=== PATIENT | female | born 1990 | race Caucasian/White ===

== ENCOUNTER 2020-05-06 19:00 | Inpatient (IN) | payer MEDICAID ==
[2020-05-06] MEDS ORDERED: Misoprostol 200 MCG Tab PO PRN (20:52)
[2020-05-06] MEDS ORDERED: Water For Irrigation,Sterile 1,000 ML Container IRR PRN (20:52)
[2020-05-06] MEDS ORDERED: Carboprost Tromethamine 250 MCG/1 ML Amp IM PRN (20:52)
[2020-05-06] MEDS ORDERED: Nalbuphine 10 MG/1 ML Vial IVPUSH PRN (20:52)
[2020-05-06] MEDS ORDERED: Sodium Chloride 0.9% 2.5 ML Syringe FLUSH PRN (20:52)
[2020-05-06] MEDS ORDERED: Methylergonovine 0.2 MG/1 ML Amp IM PRN (20:52)
[2020-05-06] MEDS ORDERED: Sodium Chloride 0.9% 10 ML Syringe FLUSH PRN (20:52)
[2020-05-06] MEDS ORDERED: Lidocaine 1% 50 ML MDV INJECT PRN (20:52)
[2020-05-06] MEDS ORDERED: Tranexamic Acid 1,000 MG in Sodium Chloride 0.9% 100 ML IV PRN (20:52)
[2020-05-06] MEDS ORDERED: Sodium Chloride 0.9% 10 ML SDV IV PRN (20:52)
[2020-05-06] MEDS ORDERED: Butorphanol 1 MG/ML SDV IVPUSH PRN (20:52)
[2020-05-06] MEDS ORDERED: Oxytocin/0.9 % Sodium Chloride 30 UNIT/500 ML BAG IV SCH (21:00)
[2020-05-06] MEDS: Lactated Ringers 1,000 ML IV SCH ×2 (21:26→22:27)
[2020-05-06] MEDS ORDERED: Ropivacaine HCl/PF 100 ML ONE (21:39)
[2020-05-06] MEDS ORDERED: fentaNYL 100 MCG/2 ML SDV ONE (21:39)
--- NOTE | 2020-05-06 22:07 | PCM.PREANE ---
Preanesthetic Assessment - Anesthesia/Transfusion/Family Hx Anesthesia History: Prior Anesthesia Without Reaction Family History of Anesthesia Reaction: No Transfusion History: No Prior Transfusion(s) - Physical Assessment NPO Status Date: 05/06/20 NPO Status Time: 19:30 Height: 1.68 m Weight: 92.986 kg ASA Class: 2 - Lab Values: Laboratory Last Values WBC 9.05 K/uL (4.0-11.0) 05/06/20 20:40 RBC 3.84 M/uL (4.30-5.90) L 05/06/20 20:40 Hgb 12.0 g/dL (12.0-16.0) 05/06/20 20:40 Hct 34.3 % (36.0-46.0) L 05/06/20 20:40 MCV 89.3 fL (80.0-98.0) 05/06/20 20:40 MCH 31.3 pg (27.0-32.0) 05/06/20 20:40 MCHC 35.0 g/dL (31.0-37.0) 05/06/20 20:40 RDW Std Deviation 40.6 fl (28.0-62.0) 05/06/20 20:40 RDW Coeff of Shen 13 % (11.0-15.0) 05/06/20 20:40 Plt Count 139 K/uL (150-400) L 05/06/20 20:40 MPV 10.40 fL (7.40-12.00) 05/06/20 20:40 COVID-19 (REJI) NEGATIVE (NEGATIVE) 05/06/20 20:55 Blood Type O POSITIVE 05/06/20 20:40 Antibody Screen NEGATIVE 05/06/20 20:40 - Allergies Allergies/Adverse Reactions: Allergies Allergy/AdvReac Type Severity Reaction Status Date / Time No Known Allergies Allergy Verified 02/16/18 06:47 MDT - Acknowledgements Anesthesia Type Planned: Epidural Pt an Appropriate Candidate for the Planned Anesthesia: Yes Alternatives and Risks of Anesthesia Discussed w Pt/Guardian: Yes Pt/Guardian Understands and Agrees with Anesthesia Plan: Yes PreAnesthesia Questionnaire - Past Health History Medical/Surgical History: Denies Medical/Surgical History HEENT History: Reports: Hard of Hearing Other HEENT History: Hearing aids 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 History: Reports: Psychiatric History: Reports: Anxiety, Depression - Past Surgical History HEENT Surgical History: Reports: Oral Surgery Other HEENT Surgeries/Procedures: Carmel teeth - HOME MEDS Home Medications: Home Meds Acetaminophen [Tylenol] 650 mg PO Q4H PRN tablet 02/18/18 [Rx] Benzocaine/Menthol [Dermoplast Pain Relief [place]] 1 spray TOP ASDIRECTED PRN canister 02/18/18 [Rx] Docusate Sodium [Colace] 100 mg PO BID PRN cap 02/18/18 [Rx] Ibuprofen [Motrin] 600 mg PO Q4H PRN tablet 02/18/18 [Rx] Lanolin [Lansinoh HPA] 1 applic TOP ASDIRECTED PRN tube 02/18/18 [Rx] witchaim Arjun [Tucks] 1 pad TOP ASDIRECTED PRN pad 02/18/18 [Rx] - CURRENT (IN HOUSE) MEDS Current Meds: Current Medications Butorphanol Tartrate (Stadol) 1 mg IVPUSH Q1H PRN PRN Reason: Pain Carboprost Tromethamine (Hemabate Ds) 250 mcg IM ASDIRECTED PRN PRN Reason: Post Hemorrhage Oxytocin/Sodium Chloride (Oxytocin 30 Unit/500 Ml-Ns) 30 unit in 500 mls @ 500 mls/hr IV TITRATE SHALONDA Tranexamic Acid 1,000 mg/ (Sodium Chloride) 110 mls @ 660 mls/hr IV ONETIME PRN PRN Reason: Bleeding Lactated Ringer's (Ringers, Lactated) 1,000 mls @ 150 mls/hr IV ASDIRECTED SHALONDA Lidocaine HCl (Xylocaine 1%) 50 ml INJECT ONETIME PRN PRN Reason: Laceration repair Methylergonovine Maleate (Methergine) 0.2 mg IM ASDIRECTED PRN PRN Reason: Post Hemorrhage Misoprostol (Cytotec) 200 mcg PO ONETIME PRN PRN Reason: Post Hemorrhage Nalbuphine HCl (Nubain) 10 mg IVPUSH Q1H PRN PRN Reason: Pain (severe 7-10) Sodium Chloride (Saline Flush) 10 ml FLUSH ASDIRECTED PRN PRN Reason: Keep Vein Open Sodium Chloride (Saline Flush) 2.5 ml FLUSH ASDIRECTED PRN PRN Reason: Keep Vein Open Sodium Chloride (Normal Saline) 10 ml IV ASDIRECTED PRN PRN Reason: IV Use Sterile Water (Sterile Water For Irrigation) 1,000 ml IRR ASDIRECTED PRN PRN Reason: delivery Discontinued Medications Fentanyl (Sublimaze) Confirm Administered Dose 100 mcg .ROUTE .STK-MED ONE Stop: 05/06/20 21:40 Ropivacaine (Naropin 0.2%) Confirm Administered Dose 100 mls @ as directed . ROUTE .AppThwack-MED ONE Stop: 05/06/20 21:40
--- NOTE | 2020-05-06 22:10 | PCM.PRNOTE ---
- Free Text/Narrative Note: Anes NOte Patient requests epidural for L&D. Sitting position, level L3-L4 midline approach. Sterile technique, chloraprep scrub to lumbar area. Sterile fenestrated drape applied. Epidural space easily achieved using YASMIN technique. YASMIN at 4 cm. Cath threaded 5 cm with ease. Cath secured a tskin at 10 cm using s terile clear adhesive dressing. Test 2154 3 cc 1.5% lido with epi negative. 2199 Load 10 cc 0.2% ropiv with 1 mcg cc fentanyl in slow divided doses. 2204 Pump started wtih 90 cc same solution. Rate is 8 cc hr with 6 cc q 20 min prn bolus. Eric well. Time with patient [id number]. Alfred Le ENLISTED AIRCREW/AERIAL OBSERVER/GUNNER
[2020-05-07] MEDS ORDERED: Acetaminophen 500 MG Tab PO PRN (01:29)
[2020-05-07] MEDS ORDERED: Bisacodyl 10 MG Supp RECTAL PRN (01:29)
[2020-05-07] MEDS ORDERED: Witch Hazel Medicated Pads 40/Jar TOP PRN (01:29)
[2020-05-07] MEDS ORDERED: oxyCODONE 5 MG Tab PO PRN (01:29)
[2020-05-07] MEDS ORDERED: Benzocaine/Menthol 20%-0.5% Spray 78 GM Cannister TOP PRN (01:29)
[2020-05-07] MEDS ORDERED: Docusate Sodium 100 MG Cap PO PRN (01:29)
[2020-05-07] MEDS ORDERED: Lanolin 100% Cream 7 GM Tube TOP PRN (01:29)
--- NOTE | 2020-05-07 01:33 | PCM.DEL ---
<Mauri Vasquez A - Last Filed: 05/07/20 01:29> L & D Note - General Info Date of Service: 05/07/20 - Delivery Note Labor: Spontaneous Delivery Outcome: Livebirth Infant Delivery Method: Spontaneous Vaginal Delivery-Single Presentation: Left Occiput Anterior (ALFREDO) Nuchal Cord: None Anesthesia Type: Epidural Amniotic Fluid Description: Clear Episiotomy Type: None Laceration: 1st Degree Suture type: Vicryl Suture size: 3-0 Placenta: Intact, Spontaneous Cord: 3 Vessels Estimated Blood Loss: 300 Resuscitation Needed: No : Bulb Syringe Provider: Ry Evans Score 1 min: 8 Score 5 min: 8 Second Stage Interventions: Reports: Pushing Effectively Delivery Comments (Free Text/Narrative):: Liveborn male infant born via at 0051, APGARs 8 and 8 weighing 3390g over a 1st degree perineal laceration repaired, no complications, and mom progressing well - Patient Data Weight - Most Recent: 93.44 kg Lab Results Last 24 Hours: Laboratory Results - last 24 hr 05/06/20 05/06/20 05/06/20 Range/Units 20:40 20:40 20:55 WBC 9.05 (4.0-11.0) K/uL RBC 3.84 L (4.30-5.90) M/uL Hgb 12.0 (12.0-16.0) g/dL Hct 34.3 L (36.0-46.0) % MCV 89.3 (80.0-98.0) fL MCH 31.3 (27.0-32.0) pg MCHC 35.0 (31.0-37.0) g/dL RDW Std Deviation 40.6 (28.0-62.0) fl RDW Coeff of Shen 13 (11.0-15.0) % Plt Count 139 L (150-400) K/uL MPV 10.40 (7.40-12.00) fL COVID-19 (REJI) NEGATIVE (NEGATIVE) Blood Type O POSITIVE Antibody Screen NEGATIVE Med Orders - Current: Current Medications Butorphanol Tartrate (Stadol) 1 mg IVPUSH Q1H PRN PRN Reason: Pain Carboprost Tromethamine (Hemabate Ds) 250 mcg IM ASDIRECTED PRN PRN Reason: Post Hemorrhage Oxytocin/Sodium Chloride (Oxytocin 30 Unit/500 Ml-Ns) 30 unit in 500 mls @ 500 mls/hr IV TITRATE [facility] Last Admin: 05/07/20 00:51 Dose: 500 mls/hr Documented by: Tranexamic Acid 1,000 mg/ (Sodium Chloride) 110 mls @ 660 mls/hr IV ONETIME PRN PRN Reason: Bleeding Lactated Ringer's (Ringers, Lactated) 1,000 mls @ 150 mls/hr IV ASDIRECTED [facility] Last Infusion: 05/06/20 23:30 Dose: Infused Documented by: Lidocaine HCl (Xylocaine 1%) 50 ml INJECT ONETIME PRN PRN Reason: Laceration repair Methylergonovine Maleate (Methergine) 0.2 mg IM ASDIRECTED PRN PRN Reason: Post Hemorrhage Misoprostol (Cytotec) 200 mcg PO ONETIME PRN PRN Reason: Post Hemorrhage Nalbuphine HCl (Nubain) 10 mg IVPUSH Q1H PRN PRN Reason: Pain (severe 7-10) Sodium Chloride (Saline Flush) 10 ml FLUSH ASDIRECTED PRN PRN Reason: Keep Vein Open Sodium Chloride (Saline Flush) 2.5 ml FLUSH ASDIRECTED PRN PRN Reason: Keep Vein Open Sodium Chloride (Normal Saline) 10 ml IV ASDIRECTED PRN PRN Reason: IV Use Sterile Water (Sterile Water For Irrigation) 1,000 ml IRR ASDIRECTED PRN PRN Reason: delivery Discontinued Medications Fentanyl (Sublimaze) Confirm Administered Dose 100 mcg .ROUTE .STK-MED ONE Stop: 05/06/20 21:40 Ropivacaine (Naropin 0.2%) Confirm Administered Dose 100 mls @ as directed .ROUTE .STK-MED ONE Stop: 05/06/20 21:40 <Kristina Pennington - Last Filed: 05/07/20 01:37> - General Info Date of Service: 05/07/20 - Patient Data Lab Results Last 24 Hours: Laboratory Results - last 24 hr 05/06/20 05/06/20 05/06/20 Range/Units 20:40 20:40 20:55 WBC 9.05 (4.0-11.0) K/uL RBC 3.84 L (4.30-5.90) M/uL Hgb 12.0 (12.0-16.0) g/dL Hct 34.3 L (36.0-46.0) % MCV 89.3 (80.0-98.0) fL MCH 31.3 (27.0-32.0) pg MCHC 35.0 (31.0-37.0) g/dL RDW Std Deviation 40.6 (28.0-62.0) fl RDW Coeff of Shen 13 (11.0-15.0) % Plt Count 139 L (150-400) K/uL MPV 10.40 (7.40-12.00) fL COVID-19 (REJI) NEGATIVE (NEGATIVE) Blood Type O POSITIVE Antibody Screen NEGATIVE Med Orders - Current: Current Medications Acetaminophen (Tylenol Extra Strength) 1,000 mg PO Q6H PRN PRN Reason: Pain Benzocaine/Menthol (Dermoplast Pain Relief 20%-0.5% [place]) 78 gm TOP ASDIRECTED PRN PRN Reason: Perineal Comfort Measure Bisacodyl (Dulcolax) 10 mg RECTAL ONETIME PRN PRN Reason: Constipation Butorphanol Tartrate (Stadol) 1 mg IVPUSH Q1H PRN PRN Reason: Pain Carboprost Tromethamine (Hemabate Ds) 250 mcg IM ASDIRECTED PRN PRN Reason: Post Hemorrhage Docusate Sodium (Colace) 100 mg PO BID PRN PRN Reason: Constipation Emollient Ointment (Lansinoh Hpa) 0 gm TOP ASDIRECTED PRN PRN Reason: Sore Nipples Oxytocin/Sodium Chloride (Oxytocin 30 Unit/500 Ml-Ns) 30 unit in 500 mls @ 500 mls/hr IV TITRATE [facility] Last Admin: 05/07/20 00:51 Dose: 500 mls/hr Documented by: Tranexamic Acid 1,000 mg/ (Sodium Chloride) 110 mls @ 660 mls/hr IV ONETIME PRN PRN Reason: Bleeding Lactated Ringer's (Ringers, Lactated) 1,000 mls @ 150 mls/hr IV ASDIRECTED [facility] Last Infusion: 05/06/20 23:30 Dose: Infused Documented by: Ibuprofen (Motrin) 800 mg PO Q8H PRN PRN Reason: Pain Lidocaine HCl (Xylocaine 1%) 50 ml INJECT ONETIME PRN PRN Reason: Laceration repair Methylergonovine Maleate (Methergine) 0.2 mg IM ASDIRECTED PRN PRN Reason: Post Hemorrhage Misoprostol (Cytotec) 200 mcg PO ONETIME PRN PRN Reason: Post Hemorrhage Nalbuphine HCl (Nubain) 10 mg IVPUSH Q1H PRN PRN Reason: Pain (severe 7-10) Oxycodone HCl (Oxycodone) 5 mg PO Q2H PRN PRN Reason: Pain Sodium Chloride (Saline Flush) 10 ml FLUSH ASDIRECTED PRN PRN Reason: Keep Vein Open Sodium Chloride (Saline Flush) 2.5 ml FLUSH ASDIRECTED PRN PRN Reason: Keep Vein Open Sodium Chloride (Normal Saline) 10 ml IV ASDIRECTED PRN PRN Reason: IV Use Sterile Water (Sterile Water For Irrigation) 1,000 ml IRR ASDIRECTED PRN PRN Reason: delivery Witch Carlita (Tucks) 1 pad TOP ASDIRECTED PRN PRN Reason: comfort care Discontinued Medications Fentanyl (Sublimaze) Confirm Administered Dose 100 mcg .ROUTE .STK-MED ONE Stop: 05/06/20 21:40 Ropivacaine (Naropin 0.2%) Confirm Administered Dose 100 mls @ as directed .ROUTE .3D Forms-MED ONE Stop: 05/06/20 21:40 - Problem List & Annotations (1) Vaginal delivery SNOMED Code(s): 985750931 Code(s): O80 - ENCOUNTER FOR FULL-TERM UNCOMPLICATED DELIVERY Status: Acute Current Visit: Yes - Problem List Review Problem List Initiated/Reviewed/Updated: Yes - My Orders Last 24 Hours: My Active Orders 05/06/20 20:40 RPR (SYPHILIS SERO) W/ RFLX [REF] Routine 05/06/20 20:52 Patient Status [ADT] Routine Heart Tones [RC] CONTINUOUS Non Stress Test [RC] PER UNIT ROUTINE May Shower [RC] ASDIRECTED Notify Provider [RC] PRN Up ad Rosita [RC] ASDIRECTED Vaginal Exam [RC] PRN Vital Signs [RC] PER UNIT ROUTINE Butorphanol [Stadol] 1 mg IVPUSH Q1H PRN Carboprost Tromethamine [Hemabate DS] 250 mcg IM ASDIRECTED PRN Lidocaine 1% [Xylocaine 1%] 50 ml INJECT ONETIME PRN Methylergonovine [Methergine] 0.2 mg IM ASDIRECTED PRN Nalbuphine [Nubain] 10 mg IVPUSH Q1H PRN Sodium Chloride 0.9% [Normal Saline] 10 ml IV ASDIRECTED PRN Sodium Chloride 0.9% [Saline Flush] 10 ml FLUSH ASDIRECTED PRN Sodium Chloride 0.9% [Saline Flush] 2.5 ml FLUSH ASDIRECTED PRN Tranexamic Acid [Cyklokapron] 1,000 mg Sodium Chloride 0.9% [Normal Saline] 100 ml IV ONETIME Water For Irrigation,Sterile [Sterile Water for Irrigation] 1,000 ml IRR ASDIRECTED PRN miSOPROStoL [Cytotec] 200 mcg PO ONETIME PRN Scalp Electrode [WOMSER] Per Unit Routine Peripheral IV Insertion Adult [OM.PC] Routine Resuscitation Status Routine 05/06/20 21:00 Lactated Ringers [Ringers, Lactated] 1,000 ml IV ASDIRECTED Oxytocin/0.9 % Sodium Chloride [Oxytocin 30 Unit/500 ML-NS] 30 unit in 500 ml IV TITRATE 05/07/20 01:29 Patient Status [ADT] Routine May Shower [RC] ASDIRECTED Notify Provider Vital Signs [RC] ASDIRECTED Up ad Rosita [RC] ASDIRECTED Vital Signs [RC] PER UNIT ROUTINE Acetaminophen [Tylenol Extra Strength] 1,000 mg PO Q6H PRN Benzocaine/Menthol [Dermoplast Pain Relief 20%-0.5% [place]] 78 gm TOP ASDIRECTED PRN Docusate Sodium [Colace] 100 mg PO BID PRN Ibuprofen [Motrin] 800 mg PO Q8H PRN Lanolin [Lansinoh HPA] See Dose Instructions TOP ASDIRECTED PRN bisacodyL [Dulcolax] 10 mg RECTAL ONETIME PRN oxyCODONE 5 mg PO Q2H PRN witch Carlita [Tucks] 1 pad TOP ASDIRECTED PRN Assess Lochia [WOMSER] Per Unit Routine Assess Uterine Involution [WOMSER] Per Unit Routine Breast Pump [WOMSER] Per Unit Routine Ice Therapy [OM.PC] Per Unit Routine Perineal Care [OM.PC] Per Unit Routine Peripheral IV Discontinue [OM.PC] Routine Sitz Bath [OM.PC] Per Unit Routine 05/07/20 01:30 Cooling Warming Measures [RC] ASDIRECTED 05/07/20 Breakfast Regular Diet [DIET] 05/08/20 05:11 HEMOGLOBIN/HEMATOCRIT,HH [HEME] Timed - Assessment Assessment:: 29yo s/p at 39w6d - Plan Plan:: Admit to unit for routine care.
[2020-05-07] MEDS: Ibuprofen 800 MG Tab PO PRN ×2 (04:26→16:16)
--- NOTE | 2020-05-07 05:53 | OR ---
SURGEON: Kristina Pennington MD DATE OF PROCEDURE: 05/07/2020 PREOPERATIVE DIAGNOSES: 1. A 29-year-old, G2, P1-0-0-1 at 39 weeks and 5 days' gestation. 2. Labor. 3. Group B streptococcus negative. POSTOPERATIVE DIAGNOSES: 1. A 29-year-old, G2, P2-0-0-2 status post spontaneous vaginal delivery at 39 weeks and 6 days' gestation. 2. Labor. 3. Group B streptococcus negative. PROCEDURE: Spontaneous vaginal delivery and repair of 1st-degree perineal laceration. PRIMARY SURGEON: Kristina Pennington MD ENVIRONMENTAL STUDIES PROFESSOR: Mauri Vasquez, medical student. ANESTHESIA: Epidural. ESTIMATED BLOOD LOSS: 300 mL. FINDINGS: Live female in cephalic presentation. score of 8 and 8 at one and five minutes respectively. Weight 3390 g. Placenta intact and with 3-vessel cord. First-degree perineal laceration. INDICATIONS: This is a 29-year-old, G2, P1-0-0-1 who presented at 39 weeks and 5 days' gestation in active labor. Upon presentation, her cervix was found to be 3 cm dilated. She changed to 4 cm dilated and was admitted to Labor and Delivery. At approximately 5 cm dilated, she underwent artificial rupture of membranes with clear fluid noted. She received an epidural for pain control. She progressed to complete cervical dilation and began pushing. I was called to the room. DESCRIPTION OF PROCEDURE: I arrived to the room with station at +2 station. Over the next 2 contractions, the patient pushed and delivered a live male . The head was delivered followed by the shoulders and remainder of the body. The placed on maternal abdomen. After approximately 60 seconds, the cord was clamped and cut. The perineum was inspected and a first-degree perineal laceration was noted. This was repaired to anatomy and hemostasis with 3-0 Vicryl. The placenta then delivered intact and with 3-vessel cord via the Joseph-Steinberg maneuver. Fundus was firm below the umbilicus with minimal lochia. The patient tolerated the delivery well. [id number] / MODL /[id number]
--- NOTE | 2020-05-07 07:34 | PCM48HPAN ---
Post Anesthesia Note - EVALUATION WITHIN 48HRS OF ANESTHETIC Vital Signs in Normal Range: Yes Patient Participated in Evaluation: Yes Respiratory Function Stable: Yes Airway Patent: Yes Cardiovascular Function Stable: Yes Hydration Status Stable: Yes Pain Control Satisfactory: Yes Nausea and Vomiting Control Satisfactory: Yes Mental Status Recovered: Yes Vital Signs: Last Vital Signs Temp Pulse 84 05/07/20 04:15 Resp 16 05/07/20 04:15 BP 127/80 05/07/20 04:15 Pulse Ox
--- NOTE | 2020-05-07 12:07 | PCM.PNPP ---
- General Info Date of Service: 05/07/20 Admission Dx/Problem (Free Text): Spontaneous labor Subjective Update: Patient reports pain is minimal, just in her back from the epidural, she is ambulating, tolerating diet, urinating and showered this afternoon. Baby nursed some initially after delivery but has been sleepy since Functional Status: Reports: Pain Controlled, Tolerating Diet, Ambulating, Urinating Pain Score: 2 - Review of Systems General: Reports: No Symptoms HEENT: Reports: No Symptoms Pulmonary: Reports: No Symptoms Cardiovascular: Reports: No Symptoms Gastrointestinal: Reports: No Symptoms Genitourinary: Reports: No Symptoms Musculoskeletal: Reports: No Symptoms Skin: Reports: No Symptoms Neurological: Reports: No Symptoms Psychiatric: Reports: No Symptoms - General Info Date of Service: 05/07/20 - Patient Data Vital Signs - Most Recent: Last Vital Signs Temp 98.4 F 05/07/20 07:29 Pulse 67 05/07/20 07:29 Resp 15 05/07/20 07:29 BP 113/63 05/07/20 07:29 Pulse Ox 96 05/07/20 07:29 Weight - Most Recent: 206 lb Lab Results - Last 24 Hours: Laboratory Results - last 24 hr 05/06/20 05/06/20 05/06/20 Range/Units 20:40 20:40 20:55 WBC 9.05 (4.0-11.0) K/uL RBC 3.84 L (4.30-5.90) M/uL Hgb 12.0 (12.0-16.0) g/dL Hct 34.3 L (36.0-46.0) % MCV 89.3 (80.0-98.0) fL MCH 31.3 (27.0-32.0) pg MCHC 35.0 (31.0-37.0) g/dL RDW Std Deviation 40.6 (28.0-62.0) fl RDW Coeff of Shen 13 (11.0-15.0) % Plt Count 139 L (150-400) K/uL MPV 10.40 (7.40-12.00) fL COVID-19 (REJI) NEGATIVE (NEGATIVE) Blood Type O POSITIVE Antibody Screen NEGATIVE Med Orders - Current: Current Medications Acetaminophen (Tylenol Extra Strength) 1,000 mg PO Q6H PRN PRN Reason: Pain Last Admin: 05/07/20 04:26 Dose: 1,000 mg Documented by: Benzocaine/Menthol (Dermoplast Pain Relief 20%-0.5% [place]) 78 gm TOP ASDIRECTED PRN PRN Reason: Perineal Comfort Measure Last Admin: 05/07/20 02:43 Dose: 1 canister Documented by: Bisacodyl (Dulcolax) 10 mg RECTAL ONETIME PRN PRN Reason: Constipation Butorphanol Tartrate (Stadol) 1 mg IVPUSH Q1H PRN PRN Reason: Pain Carboprost Tromethamine (Hemabate Ds) 250 mcg IM ASDIRECTED PRN PRN Reason: Post Hemorrhage Docusate Sodium (Colace) 100 mg PO BID PRN PRN Reason: Constipation Emollient Ointment (Lansinoh Hpa) 0 gm TOP ASDIRECTED PRN PRN Reason: Sore Nipples Oxytocin/Sodium Chloride (Oxytocin 30 Unit/500 Ml-Ns) 30 unit in 500 mls @ 500 mls/hr IV TITRATE [facility] Last Admin: 05/07/20 00:51 Dose: 500 mls/hr Documented by: Tranexamic Acid 1,000 mg/ (Sodium Chloride) 110 mls @ 660 mls/hr IV ONETIME PRN PRN Reason: Bleeding Lactated Ringer's (Ringers, Lactated) 1,000 mls @ 150 mls/hr IV ASDIRECTED SHALONDA Last Infusion: 05/06/20 23:30 Dose: Infused Documented by: Ibuprofen (Motrin) 800 mg PO Q8H PRN PRN Reason: Pain Last Admin: 05/07/20 04:26 Dose: 800 mg Documented by: Lidocaine HCl (Xylocaine 1%) 50 ml INJECT ONETIME PRN PRN Reason: Laceration repair Methylergonovine Maleate (Methergine) 0.2 mg IM ASDIRECTED PRN PRN Reason: Post Hemorrhage Misoprostol (Cytotec) 200 mcg PO ONETIME PRN PRN Reason: Post Hemorrhage Nalbuphine HCl (Nubain) 10 mg IVPUSH Q1H PRN PRN Reason: Pain (severe 7-10) Oxycodone HCl (Oxycodone) 5 mg PO Q2H PRN PRN Reason: Pain Sodium Chloride (Saline Flush) 10 ml FLUSH ASDIRECTED PRN PRN Reason: Keep Vein Open Sodium Chloride (Saline Flush) 2.5 ml FLUSH ASDIRECTED PRN PRN Reason: Keep Vein Open Sodium Chloride (Normal Saline) 10 ml IV ASDIRECTED PRN PRN Reason: IV Use Sterile Water (Sterile Water For Irrigation) 1,000 ml IRR ASDIRECTED PRN PRN Reason: delivery Jessica Zazueta (Tucks) 1 pad TOP ASDIRECTED PRN PRN Reason: comfort care Last Admin: 05/07/20 02:43 Dose: 1 tub Documented by: Discontinued Medications Fentanyl (Sublimaze) Confirm Administered Dose 100 mcg .ROUTE .STK-MED ONE Stop: 05/06/20 21:40 Last Admin: 05/07/20 08:08 Dose: Not Given Documented by: Ropivacaine (Naropin 0.2%) Confirm Administered Dose 100 mls @ as directed .ROUTE .STK-MED ONE Stop: 05/06/20 21:40 Last Admin: 05/07/20 08:08 Dose: Not Given Documented by: - Infant Interaction Infant Disposition, : in Room with Family Interaction: Holding Infant Infant Feeding: Attempted ; Nursed Fair/Poor (Baby sleepy since delivery; planning on ) Support Person: - Recovery Exam Fundal Tone: Firm Fundal Level: At Umbilicus Fundal Placement: Left Lochia Amount: Scant Lochia Color: Rubra/Red Perineum Description: Other (see below) Other Perinuem Description: 2nd degree midline laceration. Episiotomy/Laceration: Approximated Bladder Status: Voiding Urinary Elimination: Voided - Exam General: Alert, Oriented Neck: Supple Lungs: Clear to Auscultation Cardiovascular: Regular Rate, Regular Rhythm GI/Abdominal Exam: Normal Bowel Sounds, Soft, Non-Tender, No Organomegaly, No Distention, No Abnormal Bruit, No Mass, Pelvis Stable Extremities: Normal Inspection, Normal Range of Motion, Non-Tender, Pedal Edema (trace) Skin: Warm, Dry, Intact Neurological: No New Focal Deficit - Assessment Assessment:: 29yo s/p at 39w6d over a 2nd degree perineal laceration repaired, progressing well - Plan Plan:: Admit to unit for routine care - Continue cares - Ambulation - Diet as tolerated - PRN Tylenol - Colace - Continue attempts - Home tomorrow morning after 24hrs
[2020-05-08] MEDS: Ibuprofen 800 MG Tab PO PRN (00:34)
--- NOTE | 2020-05-08 07:21 | PCM.PNPP ---
<Mauri Vasquez - Last Filed: 05/08/20 07:16> - General Info Date of Service: 05/08/20 Admission Dx/Problem (Free Text): Spontaneous labor Subjective Update: Patient reports pain is minimal, she is ambulating, tolerating diet, urinating, passing flatus and waiting for a bowel movement. is nursing every 2-3h for 10-15 minutes, latching well. Functional Status: Reports: Pain Controlled, Tolerating Diet, Ambulating, Urinating Pain Score: 1 - Review of Systems General: Reports: No Symptoms HEENT: Reports: No Symptoms Pulmonary: Reports: No Symptoms Cardiovascular: Reports: No Symptoms Gastrointestinal: Reports: No Symptoms Genitourinary: Reports: No Symptoms Musculoskeletal: Reports: No Symptoms Skin: Reports: No Symptoms Neurological: Reports: No Symptoms Psychiatric: Reports: No Symptoms - General Info Date of Service: 05/08/20 - Patient Data Vital Signs - Most Recent: Last Vital Signs Temp 97.3 F 05/08/20 04:00 Pulse 66 05/08/20 04:00 Resp 15 05/08/20 04:00 BP 122/71 05/08/20 04:00 Pulse Ox 96 05/08/20 04:00 Weight - Most Recent: 93.44 kg Lab Results - Last 24 Hours: Laboratory Results - last 24 hr 05/08/20 Range/Units 05:48 Hgb 11.8 L (12.0-16.0) g/dL Hct 35.7 L (36.0-46.0) % Med Orders - Current: Current Medications Acetaminophen (Tylenol Extra Strength) 1,000 mg PO Q6H PRN PRN Reason: Pain Last Admin: 05/07/20 04:26 Dose: 1,000 mg Documented by: Benzocaine/Menthol (Dermoplast Pain Relief 20%-0.5% Aydlett) 78 gm TOP ASDIRECTED PRN PRN Reason: Perineal Comfort Measure Last Admin: 05/07/20 02:43 Dose: 1 canister Documented by: Bisacodyl (Dulcolax) 10 mg RECTAL ONETIME PRN PRN Reason: Constipation Butorphanol Tartrate (Stadol) 1 mg IVPUSH Q1H PRN PRN Reason: Pain Carboprost Tromethamine (Hemabate Ds) 250 mcg IM ASDIRECTED PRN PRN Reason: Post Hemorrhage Docusate Sodium (Colace) 100 mg PO BID PRN PRN Reason: Constipation Emollient Ointment (Lansinoh Hpa) 0 gm TOP ASDIRECTED PRN PRN Reason: Sore Nipples Oxytocin/Sodium Chloride (Oxytocin 30 Unit/500 Ml-Ns) 30 unit in 500 mls @ 500 mls/hr IV TITRATE [facility] Last Admin: 05/07/20 00:51 Dose: 500 mls/hr Documented by: Tranexamic Acid 1,000 mg/ (Sodium Chloride) 110 mls @ 660 mls/hr IV ONETIME PRN PRN Reason: Bleeding Lactated Ringer's (Ringers, Lactated) 1,000 mls @ 150 mls/hr IV ASDIRECTED [facility] Last Infusion: 05/06/20 23:30 Dose: Infused Documented by: Ibuprofen (Motrin) 800 mg PO Q8H PRN PRN Reason: Pain Last Admin: 05/08/20 00:34 Dose: 800 mg Documented by: Lidocaine HCl (Xylocaine 1%) 50 ml INJECT ONETIME PRN PRN Reason: Laceration repair Methylergonovine Maleate (Methergine) 0.2 mg IM ASDIRECTED PRN PRN Reason: Post Hemorrhage Misoprostol (Cytotec) 200 mcg PO ONETIME PRN PRN Reason: Post Hemorrhage Nalbuphine HCl (Nubain) 10 mg IVPUSH Q1H PRN PRN Reason: Pain (severe 7-10) Oxycodone HCl (Oxycodone) 5 mg PO Q2H PRN PRN Reason: Pain Sodium Chloride (Saline Flush) 10 ml FLUSH ASDIRECTED PRN PRN Reason: Keep Vein Open Sodium Chloride (Saline Flush) 2.5 ml FLUSH ASDIRECTED PRN PRN Reason: Keep Vein Open Sodium Chloride (Normal Saline) 10 ml IV ASDIRECTED PRN PRN Reason: IV Use Sterile Water (Sterile Water For Irrigation) 1,000 ml IRR ASDIRECTED PRN PRN Reason: delivery Witch Carlita (Tucks) 1 pad TOP ASDIRECTED PRN PRN Reason: comfort care Last Admin: 05/07/20 02:43 Dose: 1 tub Documented by: Discontinued Medications Fentanyl (Sublimaze) Confirm Administered Dose 100 mcg .ROUTE .STK-MED ONE Stop: 05/06/20 21:40 Last Admin: 05/07/20 08:08 Dose: Not Given Documented by: Ropivacaine (Naropin 0.2%) Confirm Administered Dose 100 mls @ as directed .ROUTE .STK-MED ONE Stop: 05/06/20 21:40 Last Admin: 05/07/20 08:08 Dose: Not Given Documented by: - Infant Interaction Disposition, : in Room with Family Interaction: Holding Infant Infant Feeding: Breastfed ; Nursed Well Support Person: - Recovery Exam Fundal Tone: Firm Fundal Level: At Umbilicus Fundal Placement: Midline Lochia Amount: Scant Lochia Color: Rubra/Red Perineum Description: Other (see below) Other Perinuem Description: 2nd degree midline laceration Episiotomy/Laceration: Approximated Bladder Status: Voiding Urinary Elimination: Voided - Exam General: Alert, Oriented, Cooperative, No Acute Distress HEENT: Pupils Equal, Pupils Reactive, Mucous Membr. Moist/Huxley. No: Scleral Icterus Neck: Supple, Trachea Midline, No JVD. No: Lymphadenopathy Lungs: Clear to Auscultation, Normal Respiratory Effort Cardiovascular: Regular Rate, Regular Rhythm. No: No Murmurs GI/Abdominal Exam: Normal Bowel Sounds, Soft, Non-Tender, No Organomegaly, No Distention, No Abnormal Bruit, No Mass Extremities: Normal Inspection, Normal Range of Motion, Non-Tender, No Pedal Edema, Normal Capillary Refill Skin: Warm, Dry, Intact Neurological: No New Focal Deficit Psy/Mental Status: Alert, Normal Affect, Normal Mood - Assessment Assessment:: 29yo s/p at 39w6d over a 2nd degree perineal laceration repaired, progressing well - Plan Plan:: Discharge home this morning - had 24hr labs - Pelvic rest x6 weeks - PRN Tylenol for pain - PRN Colace for constipation - Follow-up in 6 weeks - Call or come in if develop fever, increasing pain, or bleeding more than 1 pad every hour <Ashlee Ariza - Last Filed: 05/08/20 08:20> - Patient Data Vital Signs - Most Recent: Last Vital Signs Temp 36.6 C 05/08/20 07:38 Pulse 64 05/08/20 07:38 Resp 16 05/08/20 07:38 BP 122/74 05/08/20 07:38 Pulse Ox 96 05/08/20 07:38 Lab Results - Last 24 Hours: Laboratory Results - last 24 hr 05/08/20 Range/Units 05:48 Hgb 11.8 L (12.0-16.0) g/dL Hct 35.7 L (36.0-46.0) % Med Orders - Current: Current Medications Acetaminophen (Tylenol Extra Strength) 1,000 mg PO Q6H PRN PRN Reason: Pain Last Admin: 05/07/20 04:26 Dose: 1,000 mg Documented by: Benzocaine/Menthol (Dermoplast Pain Relief 20%-0.5% Aydlett) 78 gm TOP ASDIRECTED PRN PRN Reason: Perineal Comfort Measure Last Admin: 05/07/20 02:43 Dose: 1 canister Documented by: Bisacodyl (Dulcolax) 10 mg RECTAL ONETIME PRN PRN Reason: Constipation Butorphanol Tartrate (Stadol) 1 mg IVPUSH Q1H PRN PRN Reason: Pain Carboprost Tromethamine (Hemabate Ds) 250 mcg IM ASDIRECTED PRN PRN Reason: Post Hemorrhage Docusate Sodium (Colace) 100 mg PO BID PRN PRN Reason: Constipation Emollient Ointment (Lansinoh Hpa) 0 gm TOP ASDIRECTED PRN PRN Reason: Sore Nipples Oxytocin/Sodium Chloride (Oxytocin 30 Unit/500 Ml-Ns) 30 unit in 500 mls @ 500 mls/hr IV TITRATE [facility] Last Admin: 05/07/20 00:51 Dose: 500 mls/hr Documented by: Tranexamic Acid 1,000 mg/ (Sodium Chloride) 110 mls @ 660 mls/hr IV ONETIME PRN PRN Reason: Bleeding Lactated Ringer's (Ringers, Lactated) 1,000 mls @ 150 mls/hr IV ASDIRECTED [facility] Last Infusion: 05/06/20 23:30 Dose: Infused Documented by: Ibuprofen (Motrin) 800 mg PO Q8H PRN PRN Reason: Pain Last Admin: 05/08/20 00:34 Dose: 800 mg Documented by: Lidocaine HCl (Xylocaine 1%) 50 ml INJECT ONETIME PRN PRN Reason: Laceration repair Methylergonovine Maleate (Methergine) 0.2 mg IM ASDIRECTED PRN PRN Reason: Post Hemorrhage Misoprostol (Cytotec) 200 mcg PO ONETIME PRN PRN Reason: Post Hemorrhage Nalbuphine HCl (Nubain) 10 mg IVPUSH Q1H PRN PRN Reason: Pain (severe 7-10) Oxycodone HCl (Oxycodone) 5 mg PO Q2H PRN PRN Reason: Pain Sodium Chloride (Saline Flush) 10 ml FLUSH ASDIRECTED PRN PRN Reason: Keep Vein Open Sodium Chloride (Saline Flush) 2.5 ml FLUSH ASDIRECTED PRN PRN Reason: Keep Vein Open Sodium Chloride (Normal Saline) 10 ml IV ASDIRECTED PRN PRN Reason: IV Use Sterile Water (Sterile Water For Irrigation) 1,000 ml IRR ASDIRECTED PRN PRN Reason: delivery Witchaim Zazueta (Tucks) 1 pad TOP ASDIRECTED PRN PRN Reason: comfort care Last Admin: 05/07/20 02:43 Dose: 1 tub Documented by: Discontinued Medications Fentanyl (Sublimaze) Confirm Administered Dose 100 mcg .ROUTE .STK-MED ONE Stop: 05/06/20 21:40 Last Admin: 05/07/20 08:08 Dose: Not Given Documented by: Ropivacaine (Naropin 0.2%) Confirm Administered Dose 100 mls @ as directed .ROUTE .STK-MED ONE Stop: 05/06/20 21:40 Last Admin: 05/07/20 08:08 Dose: Not Given Documented by: - Problem List & Annotations (1) Vaginal delivery SNOMED Code(s): 300216987 Code(s): O80 - ENCOUNTER FOR FULL-TERM UNCOMPLICATED DELIVERY Status: Acute Current Visit: Yes - Problem List Review Problem List Initiated/Reviewed/Updated: Yes - Plan Plan:: Patient seen and examined, agree with above. Discharge instructions reviewed. Follow up at [facility] 6 weeks
== END 2020-05-08 11:45 | disposition home or self-care (01) | DRG 807 ==
LOC: MW.OBCHECK 19:00 → MW.OB 19:01 → MW.OBCHECK 20:52 → MW.OB 20:52 → OBSVTOIN 05-07 00:51 → MW.OB 05-07 03:30
PROVIDERS: ADMIT Obstetrics & Gynecology; ATTEND Obstetrics & Gynecology
PROC: 10E0XZZ Delivery of Products of Conception, External Approach (ICD-10-PCS; principal; 2020-05-07)
PROC: 10907ZC Drainage of Amniotic Fluid, Therapeutic from Products of Conception, Via Natural or Artificial Opening (ICD-10-PCS; 2020-05-07)
PROC: 0HQ9XZZ Repair Perineum Skin, External Approach (ICD-10-PCS; 2020-05-07)
PROC: 3E0R3BZ Introduction of Anesthetic Agent into Spinal Canal, Percutaneous Approach (ICD-10-PCS; 2020-05-07)
PROC: 00HU33Z Insertion of Infusion Device into Spinal Canal, Percutaneous Approach (ICD-10-PCS; 2020-05-07)
DX: O70.0 First degree perineal laceration during delivery (principal); Z37.0 Single live birth; Z3A.39 39 weeks gestation of pregnancy; Z11.59 Encounter for screening for other viral diseases
CPT/HCPCS: 36415; 51702; 59025; 59409; 85014; 85018; 85027; 86592; 86850; 86900; 86901; A9270-GY; J2590; J2795; J3010; J7120; U0002

== ENCOUNTER 2020-11-05 12:31 | Emergency (ER) | payer MEDICAID ==
--- NOTE | 2020-11-05 14:00 | CR ---
Indication: Injury and pain Technique: Right foot 3 views. Comparison: None Findings: Bones: Alignment is normal. No fractures or bone lesions. Joint spaces: Unremarkable. Soft tissues: Unremarkable. Impression: No sign of acute injury. Dictated by Fareed Quiroz MD @ Nov 05 2020 1:53PM Signed by Dr. Fareed Quiroz @ Nov 05 2020 1:58PM
--- NOTE | 2020-11-05 14:47 | EDM.PDOC ---
ED HPI GENERAL MEDICAL PROBLEM - General Chief Complaint: Lower Extremity Injury/Pain Stated Complaint: RIGHT FOOT PAIN Time Seen by Provider: 11/05/20 12:34 - History of Present Illness INITIAL COMMENTS - FREE TEXT/NARRATIVE: CHIEF COMPLAINT(S): Fall HISTORY OF PRESENT ILLNESS: This is a 47-year-old woman without any significant past medical history who comes to the emergency department with a chief complaint of fall. The patient states that she was walking down some cement steps that measured approximately 1 foot in height each when she missed her step and fell forward. She states that she had her baby boy in her arms and her baby boy hit hit his head. She denies any head injury or loss of consciousness. She denies any chest pain or shortness of breath. She denies any pain except for right foot pain. She denies any numbness, tingling, weakness. She denies any abdominal pain, nausea or vomiting. She rates her right foot pain as 5 out of 10. She denies any aggravating or relieving symptoms. She denies any radiation of this pain. She describes the pain as achy. REVIEW OF SYSTEMS: Constitutional: Denies fever, chills. Eyes: Denies eye pain Ears, Nose, Mouth, & Throat: Denies earache Cardiovascular: Denies chest pain Respiratory: Denies shortness of breath Gastrointestinal: Denies Nausea, vomiting, diarrhea, hematochezia. Genitourinary: Denies hematuria Skin:Denies a rash MSK: Positive for right foot pain Neurological: Denies blurred vision, numbness, tingling, weakness Psychiatric: Positive for history of anxiety PAST MEDICAL HISTORY: As per history of present illness and as reviewed below otherwise noncontributory. SURGICAL HISTORY: As per history of present illness and as reviewed below otherwise noncontributory. SOCIAL HISTORY: As per history of present illness and as reviewed below otherwise noncontributory. FAMILY HISTORY: As per history of present illness and as reviewed below otherwise noncontributory. EXAMINATION OF ORGAN SYSTEMS/BODY AREAS: Constitutional: Blood pressure is 129/84, heart rate 80, respiratory rate 16 with an oxygen saturation 96% on room air. Temperature 36.7 General: Overall well-appearing woman who is in no acute distress. Psychiatric: Appropriate mood and affect. Eyes: No scleral icterus or conjunctival erythema ENMT: Moist mucous membranes. No pharyngeal erythema no blood in the oropharynx. Cardiovascular: Regular, rate, and rhythm. No gallops, murmurs, or rubs. Bilateral upper extremity and lower extremity pulses symmetric and intact. No peripheral edema. No JVD. Respiratory: Lungs clear to auscultation bilaterally. No wheezes, rales, or rhonchi. Gastrointestinal: Soft, non-tender, non-distended. Normoactive bowel sounds Genitourinary: No suprapubic tenderness Musculoskeletal: The patient has full range of motion of her right ankle and right foot. Distal sensation is intact. There is tenderness to palpation along the right lateral foot. There is no bruising or lacerations. Skin: No lesions or abrasions. Neurological: Alert, GCS 15 strength and sensation grossly intact MEDICAL DECISION MAKING AND COURSE IN THE ED WITH INTERPRETATION/REVIEW OF DIAGNOSTIC STUDIES: This is a 47-year-old woman without any significant past medical history who comes to the emergency department with acute mechanical fall with right foot pain with no overt abnormality on examination. Will obtain a right foot x-ray. She states that she would not like pain medications at this time. The radiological images were viewed by myself along with reading the report from the radiologist. Right foot x-ray does not reveal any fracture or dislocation. After imaging I discussed the results with the patient. I discussed with her at this time there is no obvious fracture. I discussed the use of Tylenol and Motrin alternating for the next 48 hours. Also discussed the use of ice and elevation. She is to return for any new or worsening symptoms. She can follow- up with orthopedics or her primary care physician. She was amenable discharge at this time and had no further question DISPOSITION: The patient was discharged home in stable condition. The patient will follow up with primary care physician or orthopedics CONDITION: Good PROCEDURES: None FINAL IMPRESSION(S)/DIAGNOSES: 1. Acute mechanical fall 2. Acute right foot injury Yandel Moore M.D. right ankle/foot Pain Score (Numeric/FACES): 5 - Related Data Allergies Allergy/AdvReac Type Severity Reaction Status Date / Time No Known Allergies Allergy Verified 02/16/18 06:47 MDT Home Meds: Home Meds Acetaminophen [Tylenol] 650 mg PO Q4H PRN tablet 02/18/18 [Rx] Ibuprofen [Motrin] 600 mg PO Q4H PRN tablet 02/18/18 [Rx] Past Medical History - Past Health History Medical/Surgical History: Denies Medical/Surgical History HEENT History: Reports: Hard of Hearing Other HEENT History: Hearing aids Cardiovascular History: Reports: None Respiratory History: Reports: None Gastrointestinal History: Reports: None Genitourinary History: Reports: None [employer] History: Reports: Musculoskeletal History: Reports: None Neurological History: Reports: None Psychiatric History: Reports: Anxiety, Depression Endocrine/Metabolic History: Reports: None Hematologic History: Reports: Other (See Below) Other Hematologic History: thrombocytopenia Immunologic History: Reports: None Oncologic (Cancer) History: Reports: None Dermatologic History: Reports: None - Infectious Disease History Infectious Disease History: Reports: None - Past Surgical History HEENT Surgical History: Reports: Oral Surgery Other HEENT Surgeries/Procedures: Barton teeth GI Surgical History: Reports: None Female Surgical History: Reports: None Musculoskeletal Surgical History: Reports: Other (See Below) Other Musculoskeletal Surgeries/Procedures:: left ACL Social & Family History - Family History Family Medical History: No Pertinent Family History HEENT: Reports: Impaired Vision Cardiac: Reports: Hypertension Respiratory: Reports: Asthma GI: Reports: None : Reports: None OBGYN: Reports: Musculoskeletal: Reports: None Neurological: Reports: None Psychiatric: Reports: Anxiety, Depression, Other (See Below) Other Psychiatric Family History: history alcoholism Endocrine/Metabolic: Reports: Diabetes, type II Hematologic: Reports: None Immunologic: Reports: None Dermatologic: Reports: None Oncologic: Reports: None - Tobacco Use Tobacco Use Status *Q: Never Tobacco User - Caffeine Use Caffeine Use: Reports: Coffee - Recreational Drug Use Recreational Drug Use: No Review of Systems - Review of Systems Review Of Systems: See Below ED EXAM, GENERAL - Physical Exam Exam: See Below Course - Vital Signs Last Recorded V/S: Last Vital Signs Temp 36.7 C 11/05/20 14:58 Pulse 77 11/05/20 14:58 Resp 16 11/05/20 14:58 BP 131/76 11/05/20 14:58 Pulse Ox 95 11/05/20 14:58 Departure - Departure Time of Disposition: 14:46 Disposition: Home, Self-Care 01 Condition: Fair Clinical Impression: Foot injury Qualifiers: Encounter type: initial encounter Laterality: right Qualified Code(s): S99.921A - Unspecified injury of right foot, initial encounter - Discharge Information *PRESCRIPTION DRUG MONITORING PROGRAM REVIEWED*: No *COPY OF PRESCRIPTION DRUG MONITORING REPORT IN PATIENT MARIA G: No Instructions: Ankle Sprain, [id number], Foot Sprain, Pain Medicine Instructions, [id number] Referrals: PCP,None [Ordering Only Provider] - Forms: ED Department Discharge Additional Instructions: Your evaluated today on an emergent basis. At this time there was no obvious fracture of your right foot. I do recommend using Tylenol and Motrin alternating every 6 hours for pain relief. In addition I do recommend using ice 20 minutes 4 times a day and keep the right leg elevated with an Davy bandage compression. If you have any new or worsening symptoms please return to the emergency department. [facility] [address], [address] [place] [address] The patient is informed of any results of their evaluation and diagnostic workup and all questions are answered. They are given discharge instructions and return precautions. The patient is stable for discharge. The patient states they understand and agree with the plan and that they will return if their symptoms get worse or if they have any new concerns. The following information is given to patients seen in the emergency department who are being discharged to home. This information is to outline your options for follow-up care. We provide all patients seen in our emergency department with a follow-up referral. The need for follow-up, as well as the timing and circumstances, are variable depending upon the specifics of your emergency department visit. If you don't have a primary care physician on staff, we will provide you with a referral. We always advise you to contact your personal physician following an emergency department visit to inform them of the circumstance of the visit and for follow-up with them and/or the need for any referrals to a consulting specialist. The emergency department will also refer you to a specialist when appropriate. This referral assures that you have the opportunity for follow-up care with a specialist. All of these measure are taken in an effort to provide you with optimal care, which includes your follow-up. Under all circumstances we always encourage you to contact your private physician who remains a resource for coordinating your care. When calling for follow-up care, please make the office aware that this follow-up is from your recent emergency room visit. If for any reason you are refused follow-up, please contact the [facility] Emergency Department at and asked to speak to the emergency department charge nurse. Sepsis Event Note (ED) - Evaluation Sepsis Screening Result: No Definite Risk
== END 2020-11-05 14:49 | disposition home or self-care (01) ==
LOC: MW.ED 12:31
DX: S99.921A Unspecified injury of right foot, initial encounter (principal); W10.9XXA Fall (on) (from) unspecified stairs and steps, initial encounter
CPT/HCPCS: 73630-26-RT; 73630-RT; 99283